=== PATIENT | female | born 1980 | race Caucasian/White ===

== ENCOUNTER 2021-12-13 06:05 | Emergency (ER) | payer OTHER ==
[~2021-12-13] VITALS: Ht 175.3 cm; Wt 88.5 kg
[2021-12-13] MEDS ORDERED: HYDR1TAB94 PO (07:25)
== END 2021-12-13 07:37 | disposition home or self-care (01) ==
LOC: ER 06:05
DX: S01.511A Laceration without foreign body of lip, initial encounter (principal); S30.0XXA Contusion of lower back and pelvis, initial encounter; F17.200 Nicotine dependence, unspecified, uncomplicated; Z91.038 Other insect allergy status; Z91.018 Allergy to other foods; W01.0XXA Fall on same level from slipping, tripping and stumbling without subsequent striking against object, initial encounter
CPT/HCPCS: 12001; 72100; 99284-25; A9270